=== PATIENT | male | born 1960 | race Caucasian/White ===

== ENCOUNTER → 2016-05-25 | Outpatient (CLI) | payer BC ==
[~2016-05-25] VITALS: Ht 175.3 cm; Wt 273.1 kg
[2016-05-25 15:59] VITALS: BP 148/81; PULSE 72; Ht 175.3 cm; Wt 273.1 kg
== END | disposition home or self-care (01) ==
LOC: C.NEUR 15:45
PROVIDERS: ATTEND Internal Medicine Pulmonary Disease
DX: G47.30 Sleep apnea, unspecified (principal)